=== PATIENT | male | born 1960 | race Caucasian/White ===

== ENCOUNTER → 2017-05-07 07:01 | Outpatient (CLI) | payer OTHER, SELFPAY ==
[2017-05-07 10:37] LABS: Glucose 104 mg/dL (74-106); Hemoglobin A1c 5.6 % (4.2-6.3); PSA,Total - Annual Screen 0.65 ng/mL (0.00-4.00)
== END ==
PROVIDERS: Family Provider Family Medicine; PCP Family Medicine; Visit Provider Family Medicine
DX: R73.01 Impaired fasting glucose (principal); Z12.5 Encounter for screening for malignant neoplasm of prostate
CPT/HCPCS: 36415; 82947; 83036; 84153; G0103

== ENCOUNTER → 2017-09-16 12:15 | Outpatient (CLI) | payer OTHER, SELFPAY ==
--- NOTE | 2017-09-16 12:17 | RAD_ITS ---
STUDY: X-RAY CHEST REASON FOR EXAM: Male, 56 years old. Left rib pain following injury. TECHNIQUE: PA and lateral views of the chest. COMPARISON: None. FINDINGS: Mild increased linear markings at the left lung base with blunted left costophrenic angle. This may represent a left basilar atelectasis. Normal size heart. Normal mediastinum and jessy. Normal visualized pulmonary arteries. Normal visualized aortic arch and descending thoracic aorta. Normal visualized thoracic spine. I suspect a nondisplaced fracture of the left seventh and eighth ribs. There is no demonstrated abnormality of the visualized soft tissue structures of the upper abdomen. RAD/Chest PA and Lateral IMPRESSION: Findings suggesting mild left basilar atelectasis and small left effusion. Findings suggestive of a nondisplaced fractures of the left seventh and eighth ribs. Electronically Signed: Darnell Weiss MD at 13:03 EDT Tel [phone], Service support ,
--- NOTE | 2017-09-16 12:47 | RAD_ITS ---
STUDY: X-RAY - UNILATERAL RIBS ( LEFT ) REASON FOR EXAM: Male, 56 years old. Left rib injury. TECHNIQUE: 4 view(s) of the ribs. COMPARISON: None. FINDINGS: Nondisplaced fractures of the left seventh and eighth ribs anterolaterally. Left basilar atelectasis and blunting of left costophrenic angle. RAD/Ribs Unil 2V No CXR IMPRESSION: Nondisplaced fractures involving the left seventh and eighth ribs anterolaterally with underlying left basilar atelectasis and blunting of the left costophrenic angle. Electronically Signed: Darnell Weiss MD at 13:04 EDT Tel [phone], Service support ,
== END ==
PROVIDERS: Family Provider Family Medicine; PCP Family Medicine; Visit Provider Family Medicine
DX: S20.212A Contusion of left front wall of thorax, initial encounter (principal)
CPT/HCPCS: 71046; 71100

== ENCOUNTER → 2018-02-12 06:13 | Outpatient (CLI) | payer SELFPAY ==
--- NOTE | 2018-02-12 06:35 | MRI_ITS ---
STUDY: MRI LUMBAR SPINE WITHOUT CONTRAST REASON FOR EXAM: Male, 57 years old. ischial bursitis, lbp, rt leg pain, injury 2002; current pain x 4-5 wks. TECHNIQUE: Standardized fat and water weighted pulse sequences were obtained in the sagittal and axial planes. COMPARISON: None FINDINGS: T12-L1: Normal endplates. Normal disc height, hydration and morphology. Normal bilateral facet joints. Normal central canal and bilateral lateral recesses. Normal bilateral intervertebral neural foramina. There is straightening of the normal lumbar lordosis. There is no substantial scoliosis. Normal conus medullaris that terminates at the L2 L1-2: Normal endplates. Normal disc height, hydration and morphology. Normal bilateral facet joints. Normal central canal and bilateral lateral recesses. Normal bilateral intervertebral neural foramina. L2-3: Normal endplates. Normal disc height, hydration and morphology. There is mild facet arthropathy. Normal central canal and bilateral lateral recesses. Normal bilateral intervertebral neural foramina. L3-4: Normal endplates. Normal disc height, hydration and morphology. There is mild facet arthropathy. Normal central canal and bilateral lateral recesses. Normal bilateral intervertebral neural foramina. L4-5: There is minimal disc space narrowing and endplate spondylosis. There is a mild disc bulge with left foraminal annular fissure without significant central canal or foraminal stenosis. There is mild facet arthropathy. L5-S1: There is mild disc space narrowing and endplates spondylosis. There is minimal disc bulge without significant central canal or foraminal stenosis. There is 1 cm hemangioma at L5. There is incompletely visualized right paracentral structure (axial image #1 series 6) with severe right lateral recess stenosis and posterior displacement of the traversing S1 nerve root Normal visualized sacral ala. Normal visualized paraspinous soft tissue structures. MRI/Spine Lumbar (Routine) IMPRESSION: L5/S1: Right lateral recess structure with severe stenosis. Leading differential consideration is extrusion/sequestration Electronically Signed: Reddy Mcfarland MD at 15:58 EST Tel , Service support ,
--- OUTSIDE RECORDS SUMMARY | 2018-04-09 06:27 | XMS RPT_ITS ---
:1960 Author Organization [facility] Care Team Providers Name Role Phone Fercho Mcdonald Attending Unavailable Fercho Mcdonald Referring Unavailable Fercho Mcdonald Primary Care Unavailable Fercho Mcdonald Attending Unavailable Fercho Mcdonald Primary Care Unavailable Fercho Mcdonald Attending Unavailable Fercho Mcdonald Referring Unavailable Fercho Mcdonald Primary Care Unavailable PROBLEMS PROBLEMS DATE TYPE CONDITION / CODE ATTENDING STATUS SOURCE 02/24/2018 Unknown M70.70 - Other Fercho Mcdonald Active [facility] bursitis of hip, Pending Sale To [facility] unspecified hip / Hospital M70.70(ICD-10) Repository 09/16/2017 Unknown S20.212A - Fercho Mcdonald Active [facility] Contusion of left [facility] front wall [facility] thorax, initial Repository encounter / S20.212A(ICD-10) PROCEDURES PROCEDURES No Procedure Records FoundRESULTS RESULTS SPINE LUMBAR Observed: 02/12/2018 Status: F Source: [place] (ROUTINE) 6:35 AM [facility] REPOSITORY [facility] Imaging Services [address] [place] [address] Spine Lumbar (Routine) MR#: [id number] Acct: [id number] Name: SANTOSH THOMSA Rep #: [id number] : 1960 M 57 From: Reddy Mcfarland PCP: Fercho Mcdonald MD Status: REG CLI Study: Spine Lumbar (Routine) Date of Exam: 02/12/18 Exam# [id number] Ordering Dr: Fercho Mcdonald MD STUDY: MRI LUMBAR SPINE WITHOUT CONTRAST REASON FOR EXAM: Male, 57 years old. ischial bursitis, lbp, rt leg pain, injury 2002; current pain x 4-5 wks. TECHNIQUE: Standardized fat and water weighted pulse sequences were obtained in the sagittal and axial planes. COMPARISON: None FINDINGS: T12-L1: Normal endplates. Normal disc height, hydration and morphology. Normal bilateral facet joints. Normal central canal and bilateral lateral recesses. Normal bilateral intervertebral neural foramina. There is straightening of the normal lumbar lordosis. There is no substantial scoliosis. Normal conus medullaris that terminates at the L2 L1-2: Normal endplates. Normal disc height, hydration and morphology. Normal bilateral facet joints. Normal central canal and bilateral lateral recesses. Normal bilateral intervertebral neural foramina. L2-3: Normal endplates. Normal disc height, hydration and morphology. There is mild facet arthropathy. Normal central canal and bilateral lateral recesses. Normal bilateral intervertebral neural foramina. L3-4: Normal endplates. Normal disc height, hydration and morphology. There is mild facet arthropathy. Normal central canal and bilateral lateral recesses. Normal bilateral intervertebral neural foramina. L4-5: There is minimal disc space narrowing and endplate spondylosis. There is a mild disc bulge with left foraminal annular fissure without significant central canal or foraminal stenosis. There is mild facet arthropathy. L5-S1: There is mild disc space narrowing and endplates spondylosis. There is minimal disc bulge without significant central canal or foraminal stenosis. There is 1 cm hemangioma at L5. There is incompletely visualized right paracentral structure (axial image #1 series 6) with severe right lateral recess stenosis and posterior displacement of the traversing S1 nerve root Normal visualized sacral ala. Normal visualized paraspinous soft tissue structures. MRI/Spine Lumbar (Routine) IMPRESSION: L5/S1: Right lateral recess structure with severe stenosis. Leading differential consideration is extrusion/sequestration Electronically Signed: Reddy Mcfarland MD at 15:58 EST Tel , Service support , CC: Fercho Mcdonald MD Vegetable Farmer: Signed RIBS UNIL 2V NO Observed: 09/16/2017 Status: F Source: [place] CXR 12:47 PM [facility] REPOSITORY [facility] Imaging Services [address] [place] [address] Ribs Unil 2V No CXR MR#: [id number] Acct: [id number] Name: SANTOSH THOMAS Rep #: [id number] : 1960 M 56 From: Dranell Weiss MD PCP: Fercho Mcdonald MD Status: REG CLI Study: Ribs Unil 2V No CXR Date of Exam: 09/16/17 Exam# [id number] Ordering Dr: Fercho Mcdonald MD STUDY: X-RAY - UNILATERAL RIBS ( LEFT ) REASON FOR EXAM: Male, 56 years old. Left rib injury. TECHNIQUE: 4 view(s) of the ribs. COMPARISON: None. FINDINGS: Nondisplaced fractures of the left seventh and eighth ribs anterolaterally. Left basilar atelectasis and blunting of left costophrenic angle. RAD/Ribs Unil 2V No CXR IMPRESSION: Nondisplaced fractures involving the left seventh and eighth ribs anterolaterally with underlying left basilar atelectasis and blunting of the left costophrenic angle. Electronically Signed: Darnell Weiss MD at 13:04 EDT Tel [phone], Service support , CC: Fercho Mcdonald MD Vegetable Farmer: Signed CHEST PA AND LATERAL Observed: 09/16/2017 Status: F Source: [place] 12:18 PM [facility] REPOSITORY [facility] Imaging Services [address] [place] [address] Chest PA and Lateral MR#: [id number] Acct: [id number] Name: SANTOSH THOMAS Rep #: [id number] : 1960 M 56 From: Darnell Weiss MD PCP: Fercho Mcdonald MD Status: REG CLI Study: Chest PA and Lateral Date of Exam: 09/16/17 Exam# [id number] Ordering Dr: Fercho Mcdonald MD STUDY: X-RAY CHEST REASON FOR EXAM: Male, 56 years old. Left rib pain following injury. TECHNIQUE: PA and lateral views of the chest. COMPARISON: None. FINDINGS: Mild increased linear markings at the left lung base with blunted left costophrenic angle. This may represent a left basilar atelectasis. Normal size heart. Normal mediastinum and jessy. Normal visualized pulmonary arteries. Normal visualized aortic arch and descending thoracic aorta. Normal visualized thoracic spine. I suspect a nondisplaced fracture of the left seventh and eighth ribs. There is no demonstrated abnormality of the visualized soft tissue structures of the upper abdomen. RAD/Chest PA and Lateral IMPRESSION: Findings suggesting mild left basilar atelectasis and small left effusion. Findings suggestive of a nondisplaced fractures of the left seventh and eighth ribs. Electronically Signed: Darnell Weiss MD at 13:03 EDT Tel [phone], Service support , CC: Fercho Mcdonald MD Vegetable Farmer: Signed GLUCOSE Collected: 05/07/2017 Status: F Source: [place] 7:11 AM [facility] REPOSITORY Order Comment: Order Date: 02/07/17 Order Info: 2345-7 - GLU Order Info: 2857-1 - PSA TYPE CODE TESTS RESULT OUT OF RANGE REFERENCE UNITS LAB L501.0100 74-106 mg/dL Normal GLU 104 Result Comment: Fasting Glucose result from 100 to 125 mg/dL suggests IMPAIRED HOMEOSTASIS per A.D.A. criteria. Please note revised GLUCOSE reference range effective 2017. Performed By: #### L501.0100, L501.9910, L501.9985 #### [facility] [address] [place], [address] PSA,TOTAL - ANNUAL Collected: 05/07/2017 Status: F Source: [place] SCREEN 7:11 AM [facility] REPOSITORY Order Comment: Order Date: 02/07/17 Order Info: [id number] - GLU Order Info: 2857-1 - PSA TYPE CODE TESTS RESULT OUT OF RANGE REFERENCE UNITS LAB L501.9910 0.00-4.00 ng/mL Normal PSA,TOT 0.65 SCREEN Result Comment: This test was performed using the TPSA assay method for the [employer] chemistry system. Values obtained with different assay methods cannot be used interchangably. When changing PSA assays in the course of monitoring a patient, additional sequential testing should be carried out to confirm baseline values. Performed By: #### L501.0100, L501.9910, L501.9985 #### [facility] [address] [place], [address] HEMOGLOBIN A1C Collected: 05/07/2017 Status: F Source: [place] 7:11 AM [facility] REPOSITORY Order Comment: Order Date: 02/07/17 Order Info: [id number] - A1C TYPE CODE TESTS RESULT OUT OF RANGE REFERENCE UNITS LAB L501.9985 4.2-6.3 % Normal HGB A1C 5.6 Performed By: #### L501.0100, L501.9910, L501.9985 #### [facility] [address] [place], [address] ALLERGIES ALLERGIES No Allergies Records FoundENCOUNTERS ENCOUNTERS ADMIT/DISCHARGE ACCOUNT ADMITTING ENCOUNTER LOCATION SOURCE NUMBER CLASS 02/12/2018 [id number] Ambulatory [facility] 7 [facility] ing:MRI Repository 09/16/2017 [id number] Ambulatory [facility] 0 [facility] ing:MTRAD Repository 05/07/2017 [id number] Ambulatory [facility] [place] 0 [facility] ing:MTLAB Repository PAYERS PAYERS ENCOUNTER GUARANTOR PAYER SUBSCRIBER SOURCE 02/12/2018 SANTOSH Mora Primary Insurance:[facility] [employer] [id number] PACKAGE PLANPolicy CHERRYDOB: [facility] Number: .[id number] Date:2018-02-10 Repository 69444Ood: () 02/12/2018 Secondary NOT GIVENUNK [place] Insurance:SELF PAY [facility] Number: Effective Repository Date:2018-02-10 09/16/2017 SANTOSH Mora Primary SANTOSH Mora [place] [id number] Insurance:AULTCAREPol CHERRYDOB: [facility] Number: [id number], [place] [id number] Repository 97[address]Vxc: [phone] Date:[id number] [phone] () [address] [place] [id number]: 09/16/2017 Secondary NOT GIVENUNK [place] Insurance:SELF PAY [facility] Number: Effective Repository Date:2017-09-16 05/07/2017 SANTOSH Primary SANTOSH White [id number] Insurance:AULTCAREPol CHERRYDOB: [facility] Number: [id number], [place] [id number] Repository 455[address]Afx: [phone] Date:[id number] [phone] () [address], [place] [address]CK: 05/07/2017 Secondary NOT GIVENUNK [place] Insurance:SELF PAY [facility] Number: Effective Repository Date:2017-05-07
== END ==
PROVIDERS: Family Provider Family Medicine; PCP Family Medicine; Referring Provider Family Medicine; Visit Provider Family Medicine
DX: M70.70 Other bursitis of hip, unspecified hip (principal)
CPT/HCPCS: 72148

== ENCOUNTER → 2018-06-09 13:31 | Outpatient (CLI) | payer OTHER, SELFPAY ==
[2018-06-09 13:22] VITALS: BMI 34.7
--- NOTE | 2018-06-09 13:32 | RAD_ITS ---
STUDY: X-RAY - LUMBAR SPINE REASON FOR EXAM: Male, 57 years old. Back pain TECHNIQUE: 4 view(s) of the lumbar spine were obtained. AP lateral, flexion and extension lateral COMPARISON: February 12, 2018 x-ray lumbar spine FINDINGS: Normal lumbar lordosis. There is no substantial scoliosis. There is a normal alignment of the vertebrae. No laxity in alignment with flexion or extension. Vertebral body height is maintained. Small marginal osteophytes are present. Normal disc space heights. There is atherosclerotic calcification of the abdominal aorta. There appears aortic ectasia distally, not well evaluated due to the intermittent calcifications seen. RAD/L/S Spine Min 4 Views IMPRESSION: No evidence of instability with flexion or extension. See above. Electronically Signed: Mary Hwang MD at 9:55 EDT , Service support ,
== END ==
PROVIDERS: Family Provider Family Medicine; PCP Family Medicine; Referring Provider Orthopaedic Surgery; Visit Provider Orthopaedic Surgery
DX: M54.5 Low back pain (principal)
CPT/HCPCS: 72110

== ENCOUNTER → 2018-10-22 07:00 | Outpatient (CLI) | payer OTHER, SELFPAY ==
[2018-06-09 13:22] VITALS: BMI 34.7
[2018-10-22 10:03] LABS: Absolute Lymphocyte Count 2.33 X10^3/uL (0.83-4.51); Absolute Neutrophil Count 2.8 X10^3/uL (2.0-7.7); Basophil# 0.04 X10^3/uL; Basophil% 0.7 % (0-1); Eosinophil# 0.28 X10^3/uL; Eosinophils% 4.7 % (0-5); Hematocrit 41.6 % (40-54); Hemoglobin 14.6 g/dL (13.0-16.5); Lymphocyte # 2.33 X10^3/ul (4.0); Mean Corp Hgb Conc 35.1 g/dL (32-36); Mean Corpuscular Hgb 31.8 pg (27.0-32.0); Mean Corpuscular Volume 90.6 fL (80-94); Mean Platelet Vol. 10.7 fl (6.2-12.0); Monocyte# 0.56 X10^3/uL; Monocyte% 9.4 % (0-10); NRBC Flagged by Analyzer 0 % (0-5); Neutrophil # 2.76 X10^3/uL (2.7-7.7); Platelet Count 198 K/mm3 (150-450); RBC Distribution Width CV 11.8 % (11.6-14.6); RBC Distribution Width SD 38.9 fl (35.1-43.9); Red Blood Count 4.59 M/mm3 (4.6-6.2)
[2018-10-22 10:19] LABS: Hemoglobin A1c 5.5 % (4.2-6.3)
[2018-10-22 10:26] LABS: ALB/GLOB Ratio 1.1 RATIO (0.9-2.4); AST(SGOT) 19 U/L (15-37); Alanine Aminotransfer ALT/SGPT 28 U/L (16-61); Albumin, Serum 3.6 g/dL (3.2-5.0); Alkaline Phosphatase 34 U/L (45-117); Anion Gap 6 (5-15); BUN 21 mg/dL (7-18); BUN/Creat Ratio 18.3 RATIO (10-20); Calcium,Total 8.4 mg/dL (8.5-10.1); Chloride 106 mmol/L (98-107); Cholesterol 205 mg/dL (200); Creatinine, Serum 1.15 mg/dL (0.70-1.30); EST Glomerular Filtration Rate 69 mL/min (>60); Est Glom Filt Rate - Afr Amer 84 mL/min (>60); Globulin 3.4 g/dL (2.2-4.2); Glucose 100 mg/dL (74-106); High Density Lipoprotein 36 mg/dL; PSA,Total - Annual Screen 0.61 ng/mL (0.00-4.00); Sodium Level 140 mmol/L (136-145); Triglycerides 210 mg/dL; Very Low Density Lipoprotein 42 mg/dL (5-40)
== END ==
PROVIDERS: Family Provider Family Medicine; PCP Family Medicine; Referring Provider Family Medicine; Visit Provider Family Medicine
DX: R73.01 Impaired fasting glucose (principal); E78.00 Pure hypercholesterolemia, unspecified; Z12.5 Encounter for screening for malignant neoplasm of prostate
CPT/HCPCS: 36415; 80053; 80061; 83036; 84153; 85025; G0103

== ENCOUNTER → 2019-02-23 09:07 | Outpatient (CLI) | payer OTHER, SELFPAY ==
[2018-06-09 13:22] VITALS: BMI 34.7
[2019-02-23 10:26] LABS: Amphetamine Urine VISTA NEGATIVE (<1000 ng/mL); Barbiturate Urine VISTA NEGATIVE (< 200 ng/mL); Benzodiazepine Urine VISTA NEGATIVE (< 200 ng/mL); Cocaine Urine VISTA NEGATIVE (< 300 ng/mL); Ecstacy Urine VISTA NEGATIVE (< 500 ng/mL); Methadone Urine VISTA NEGATIVE (< 300 ng/mL); PCP Urine VISTA NEGATIVE (< 25 ng/mL); THC Urine VISTA NEGATIVE (< 50 ng/mL); Vista UDS pH Range 5
== END ==
PROVIDERS: Family Provider Family Medicine; PCP Family Medicine; Visit Provider Family Medicine
DX: M54.5 Low back pain (principal); G89.29 Other chronic pain; E78.00 Pure hypercholesterolemia, unspecified
CPT/HCPCS: 80307

== ENCOUNTER → 2019-03-26 07:03 | Outpatient (CLI) | payer BC, SELFPAY ==
[2018-06-09 13:22] VITALS: BMI 34.7
[2019-03-26 10:36] LABS: Cholesterol 153 mg/dL (200); High Density Lipoprotein 38 mg/dL; Triglycerides 119 mg/dL; Very Low Density Lipoprotein 24 mg/dL (5-40)
== END ==
PROVIDERS: Family Provider Family Medicine; PCP Family Medicine; Referring Provider Family Medicine; Visit Provider Family Medicine
DX: E78.00 Pure hypercholesterolemia, unspecified (principal); M54.5 Low back pain
CPT/HCPCS: 36415; 80061

== ENCOUNTER → 2019-10-08 08:53 | Outpatient (CLI) | payer BC, SELFPAY ==
[2018-06-09 13:22] VITALS: BMI 34.7
[2019-10-08 10:53] LABS: ALB/GLOB Ratio 1.1 RATIO (0.9-2.4); AST(SGOT) 21 U/L (15-37); Alanine Aminotransfer ALT/SGPT 33 U/L (16-61); Albumin, Serum 3.6 g/dL (3.2-5.0); Alkaline Phosphatase 30 U/L (45-117); Anion Gap 5 (5-15); BUN 18 mg/dL (7-18); BUN/Creat Ratio 18.4 RATIO (10-20); Calcium,Total 8.4 mg/dL (8.5-10.1); Chloride 107 mmol/L (98-107); Cholesterol 179 mg/dL (200); Creatinine, Serum 0.98 mg/dL (0.70-1.30); EST Glomerular Filtration Rate 83 mL/min (>60); Est Glom Filt Rate - Afr Amer 101 mL/min (>60); Globulin 3.2 g/dL (2.2-4.2); Glucose 108 mg/dL (74-106); High Density Lipoprotein 33 mg/dL; Potassium 3.9 mmol/L (3.5-5.1); Protein, Total 6.8 g/dL (6.4-8.2); Sodium Level 140 mmol/L (136-145); Triglycerides 167 mg/dL; Very Low Density Lipoprotein 33 mg/dL (5-40)
== END ==
PROVIDERS: PCP Family Medicine; Referring Provider Family Medicine; Visit Provider Family Medicine
DX: E78.00 Pure hypercholesterolemia, unspecified (principal)
CPT/HCPCS: 36415; 80053; 80061

== ENCOUNTER 2020-06-07 12:12 | Emergency (ER) | payer BC, SELFPAY ==
[2018-06-09 13:22] VITALS: BMI 34.7
[2020-06-07 12:15] VITALS: BP 191/158; PULSE 78; RESP 16; TEMP 37.1; O2SAT 98; BMI 36.4
--- NOTE | 2020-06-07 12:18 | ED.DCSUM_ITS ---
History of Present Illness Chief Complaint: Laceration Informant: Patient Occurred: Today Narrative: Patient is a 59-year-old [id number] male presenting with injury to his right elbow. 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 A tree was falling and he was too close to it. Patient put off his right arm to shoulder himself from the tree and sustained a laceration to his right elbow. He states the whole flap of skin over his elbow came off and he pushed it back and had his father called 911. He denies any associated numbness or tingling. He denies any pain with range of motion of the arm. He is not on any blood thinners. No other injuries per reported. Patient received 100 mcg of fentanyl in route. Patient is on [employer] [place] and ibuprofen chronically for back pain. Tetanus Immunization: Unknown Past Medical History - Allergies and Home Meds Allergies/Adverse Reactions: Allergies No Known Allergies Allergy (Unverified 06/09/18 13:23) Primary Care Physician: Fercho Diego MD [Primary Care Provider] - Past Medical History: - - Hyperlipidemia, chronic back pain Surgical History: noncontributory Lives: Spouse/ Significant Other Smoking Status: Current some day smoker Review of Systems General: Denies: Chills, Fever, Sweats Eyes: Denies: Visual changes - bilaterally, Diplopia ENT: Denies: Rhinorrhea, Sore throat Cardiovascular: Denies: Chest pain, Palpitations Respiratory: Denies: Dyspnea, Cough, Dyspnea on exertion Gastrointestinal: Denies: Abdominal pain, Nausea, Vomiting, Diarrhea, Melena, Hematochezia Genitourinary: Denies: Dysuria, Hematuria, Frequency Musculoskeletal: Reports: Extremity Pain - Right elbow. Denies: Back pain Skin: Reports: Wounds - Right elbow. Denies: Rash Neurological: Denies: Headache, Weakness, Numbness Physical Exam Inital Vital Signs reviewed: Yes Right Elbow: - - 14 cm laceration dorsal aspect of elbow. Negative for: Deformity, Hematoma, Limited ROM Right Forearm: Negative for: Contusion, Deformity, Edema, Limited ROM Left Wrist: Negative for: Contusion, Deformity, Edema, Limited ROM General: Well nourished, Well developed Head: Normocephalic, Atraumatic Eyes: Perrl, EOMI ENT: No Trauma, Moist Mucous Membranes Neck: Nontender, Full ROM Cardiovascular: Regular rate, Regular rhythm, No murmurs Respiratory: No distress, CTA bilaterally, Chest nontender Abdomen: Soft, Nontender, Nondistended, Normal bowel sounds Back: Nontender Skin: Normal color, No rash, Trauma - 14 cm full-thickness V-shaped laceration over dorsal aspect of the right elbow Neurological: Alert, Oriented x3, Cranial nerves II-XII grossly intact, Normal Strength, Normal Sensation Psychological: Normal affect Diagnostic/Tx/Re-eval Right x-ray?3 views, interpreted by emergency medicine physician show soft tissue defect with subcutaneous air. There does not appear to be any involvement of the joints or air in the joint. No acute fracture is noted. - Medical Decision Making Patient evaluated for laceration/injury of his right elbow. Patient received fentanyl in route. He does not require any further pain medication in the ER. He is neuro vascularly intact. Range of motion intact in all planes. He has good distal pulses and brisk capillary refill. See procedure note for laceration repair. Laceration is undermined the flap of 5 to 6 cm and does go deeper but does not penetrate the fascia. Because of the depth, patient is given 3 g of Unasyn. Is irrigated out copiously. Two splinters, each approximately 1 cm in length are removed from the wound. Patient is placed on a course of Augmentin. He is given Ortho for follow-up as well as instructions follow-up with his primary care doctor. Tetanus is updated in the ER. Patient is in pain management and is therefore not given a prescription for any further pain medication. He already takes [employer] and Motrin which he will continue. Patient is neurovascularly intact and has good range of motion after repair. Patient is counseled on signs and symptoms requiring return to the emergency room putting signs of infection. Patient verbalizes agreement and understand this plan. Patient discharged home in stable and improved condition. Procedures - Lacerations No standard instances Length: 5.51 in Depth: Sub Q Shape: Flap Prep: Sterile Conditions, Chlorhexadine Laceration Repair: Lidocaine with epi Irrigated (ml): 999 - sterile saline Comment: Complex laceration. Laceration underneath the flap extended approximately 6 cm down to the fascia. It did not go through the fascia. 5 deep sutures placed using 4-0 Vicryl absorbable. 10 vertical mattress sutures are placed and one simple interrupted sutures placed in 4-0 Ethilon. 3 steri strips are placed at the apex of the V as some that skin is already devitalized and I do not think will keep sutures in place. ED Disposition - Plan for ED Patient: Disposition: Home or Assisted Living Diagnosis: Laceration of right elbow with foreign body Instructions: ED Laceration: All Closures Prescriptions: Amox/Clavulanate Tablet [Augmentin Tablet] 875 mg PO Q12H #20 tab Transmission Status: Pending to [facility] Referrals: Fercho Diego MD [Primary Care Provider] - Crow Mcdonald MD [STAFF PHYSICIAN] - Additional Instructions: Your doctor for wound check early next week. Return the emergency room with signs of infection or worsening pain. If you have concerns about healing or start having difficulty with movement of your elbow please follow-up with orthopedics, you been referred to Dr. Mcdonald today. Keep the wound clean and covered. Do not submerge in water for the first 24 to 48 hours. Sutures should be removed in approximately 10 days. Your primary care doctor can do that or you may return to the emergency room.
[2020-06-07 12:19] VITALS: BP 191/158; PULSE 78; RESP 16; O2SAT 97
--- NOTE | 2020-06-07 12:22 | RAD_ITS ---
STUDY: X-RAY - RIGHT ELBOW REASON FOR EXAM: Male, 59 years old. Trama . Large laceration along the posterior aspect of the arm. TECHNIQUE: 3 view(s) of the elbow. COMPARISON: None. FINDINGS: Normal visualized humerus, radius and ulna. Normal radiocapitellar and ulnotrochlear articulations. Soft tissue laceration with air in the soft tissues along the posterior aspect of the distal humerus. RAD/Elbow min 3 Views IMPRESSION: Large soft tissue laceration overlying the posterior aspect of the humerus. Small amount of air is seen within the laceration. No radiopaque foreign body is seen. Electronically Signed: Darnell Weiss MD at 12:51 EDT , Service support ,
[2020-06-07] MEDS: Diphth,Pertuss(Acell),Tet Vac 0.5 ML Vial IM (12:56)
[2020-06-07] MEDS: Lidocaine 1% /Epi 1:100 (20ml) 20 ML Vial INFILT (12:56)
[2020-06-07] MEDS: morphine 8 MG/ML Syringe IV (15:32)
[2020-06-07 15:38] VITALS: BP 140/74
== END 2020-06-07 16:00 | disposition home or self-care (01) ==
PROVIDERS: Emergency Provider Emergency Medicine; PCP Family Medicine
DX: S51.021A Laceration with foreign body of right elbow, initial encounter (principal); W26.8XXA Contact with other sharp object(s), not elsewhere classified, initial encounter; Y93.89 Activity, other specified; Y92.89 Other specified places as the place of occurrence of the external cause; Y99.0 Civilian activity done for income or pay; M54.9 Dorsalgia, unspecified; G89.29 Other chronic pain; E78.5 Hyperlipidemia, unspecified; F17.200 Nicotine dependence, unspecified, uncomplicated; Z23 Encounter for immunization
CPT/HCPCS: 12002; 73080; 90471; 90715; 96365; 96375; 99285; A4216; J0295

== ENCOUNTER → 2020-08-22 07:01 | Outpatient (CLI) | payer BC, SELFPAY ==
[2020-08-22 10:18] LABS: ALB/GLOB Ratio 1.1 RATIO (0.9-2.4); AST(SGOT) 17 U/L (15-37); Alanine Aminotransfer ALT/SGPT 30 U/L (16-61); Albumin, Serum 3.8 g/dL (3.2-5.0); Alkaline Phosphatase 36 U/L (45-117); Anion Gap 6 (5-15); BUN 23 mg/dL (7-18); BUN/Creat Ratio 20.5 RATIO (10-20); Calcium,Total 9.3 mg/dL (8.5-10.1); Chloride 107 mmol/L (98-107); Cholesterol 208 mg/dL (200); Creatinine, Serum 1.12 mg/dL (0.70-1.30); EST Glomerular Filtration Rate 71 mL/min (>60); Est Glom Filt Rate - Afr Amer 86 mL/min (>60); Globulin 3.4 g/dL (2.2-4.2); Glucose 135 mg/dL (74-106); High Density Lipoprotein 35 mg/dL; Potassium 4.2 mmol/L (3.5-5.1); Protein, Total 7.2 g/dL (6.4-8.2); Sodium Level 139 mmol/L (136-145); Triglycerides 207 mg/dL; Very Low Density Lipoprotein 41 mg/dL (5-40)
== END ==
PROVIDERS: PCP Family Medicine; Referring Provider Family Medicine; Visit Provider Family Medicine
DX: E78.00 Pure hypercholesterolemia, unspecified (principal)
CPT/HCPCS: 36415; 80053; 80061

== ENCOUNTER → 2020-10-24 12:05 | Outpatient (CLI) | payer BC, SELFPAY ==
--- NOTE | 2020-10-24 12:08 | RAD_ITS ---
STUDY: X-RAY - UNILATERAL RIBS ( LEFT ) WITH CHEST REASON FOR EXAM: Male, 59 years old. Soft tissue injury of the left chest. TECHNIQUE - RIBS: 4 view(s) of the ribs. TECHNIQUE - CHEST: Single frontal view of the chest. COMPARISON: Chest x-ray dated 09/16/2017. FINDINGS - RIBS: Healed fractures of the left seventh and eighth ribs. FINDINGS - CHEST: The lungs are clear and expanded. Stable scattered healed granulomatous calcifications. There is no demonstrated pleural abnormality. Normal size heart. Normal mediastinum and jessy. Normal visualized pulmonary arteries. Normal visualized aortic arch and descending thoracic aorta. Normal visualized thoracic spine. Normal visualized ribs, clavicles, and shoulders. There is no demonstrated abnormality of the visualized soft tissue structures of the upper abdomen. RAD/Ribs Uni Min 3V w/PA Chest IMPRESSION: RIBS: Healed fractures of the left seventh and eighth ribs. No acute displaced rib fracture identified. CHEST: Stable chest with no acute finding. Electronically Signed: Giorgio Longo MD at 9:48 EDT , Service support ,
== END ==
PROVIDERS: PCP Family Medicine; Referring Provider Family Medicine; Visit Provider Family Medicine
DX: S29.9XXA Unspecified injury of thorax, initial encounter (principal)
CPT/HCPCS: 71101

== ENCOUNTER → 2020-11-24 07:02 | Outpatient (CLI) | payer BC, SELFPAY ==
[2020-11-24 10:21] LABS: Absolute Lymphocyte Count 2.29 X10^3/uL (0.83-4.51); Absolute Neutrophil Count 2.4 X10^3/uL (2.0-7.7); Basophil# 0.04 X10^3/uL; Basophil% 0.7 % (0-1); Eosinophil# 0.33 X10^3/uL; Eosinophils% 5.8 % (0-5); Hematocrit 43.4 % (40-54); Hemoglobin 14.8 g/dL (13.0-16.5); Lymphocyte # 2.29 X10^3/ul (0.83-4.51); Lymphocyte % 40.5 % (19-41); Mean Corp Hgb Conc 34.1 g/dL (32-36); Mean Corpuscular Hgb 31.6 pg (27.0-32.0); Mean Corpuscular Volume 92.5 fL (80-94); Mean Platelet Vol. 11.6 fl (6.2-12.0); Monocyte% 10.6 % (0-10); NRBC Flagged by Analyzer 0 % (0-5); Neutrophil # 2.39 X10^3/uL (2.7-7.7); Neutrophil % 42.2 % (47-70); Platelet Count 216 K/mm3 (150-450); RBC Distribution Width SD 41.1 fl (35.1-43.9); Red Blood Count 4.69 M/mm3 (4.6-6.2); White Blood Count 5.7 K/mm3 (4.4-11.0)
[2020-11-24 10:31] LABS: Vitamin B12 405 pg/mL (211-911)
[2020-11-24 10:57] LABS: ALB/GLOB Ratio 1.1 RATIO (0.9-2.4); AST(SGOT) 21 U/L (15-37); Alanine Aminotransfer ALT/SGPT 39 U/L (16-61); Albumin, Serum 3.8 g/dL (3.2-5.0); Alkaline Phosphatase 34 U/L (45-117); Anion Gap 10 (5-15); BUN 27 mg/dL (7-18); BUN/Creat Ratio 23.9 RATIO (10-20); Calcium,Total 9.1 mg/dL (8.5-10.1); Chloride 104 mmol/L (98-107); Cholesterol 183 mg/dL (200); Creatinine, Serum 1.13 mg/dL (0.70-1.30); EST Glomerular Filtration Rate 70 mL/min (>60); Est Glom Filt Rate - Afr Amer 85 mL/min (>60); Globulin 3.6 g/dL (2.2-4.2); Glucose 117 mg/dL (74-106); High Density Lipoprotein 39 mg/dL; Potassium 4.2 mmol/L (3.5-5.1); Protein, Total 7.4 g/dL (6.4-8.2); Sodium Level 139 mmol/L (136-145); Thyroid Stim Hormone (TSH) 1.93 uIU/mL (0.358-3.74); Triglycerides 137 mg/dL; Very Low Density Lipoprotein 27 mg/dL (5-40)
[2020-11-24 11:56] LABS: Hemoglobin A1c 5.9 % (3.8-5.6)
== END ==
PROVIDERS: PCP Family Medicine; Referring Provider Family Medicine; Visit Provider Family Medicine
DX: R53.83 Other fatigue (principal); R73.01 Impaired fasting glucose; E78.00 Pure hypercholesterolemia, unspecified
CPT/HCPCS: 36415; 80053; 80061; 82607; 83036; 84443; 85025

== ENCOUNTER 2021-06-13 14:17 | Outpatient (CLI) | payer OTHER, SELFPAY ==
--- NOTE | 2021-06-13 14:20 | RAD_ITS ---
STUDY: XR Shoulder Min 2 Views REASON FOR EXAM: Male, 60 years old. PAIN TECHNIQUE: XR Shoulder Min 2 Views LEFT COMPARISON: None. FINDINGS: Normal glenohumeral articulation. Normal acromioclavicular joint. Normal acromion. Normal humeral head and visualized proximal humerus. The soft tissue structures are unremarkable. Normal visualized pulmonary apex. RAD/Shoulder min 2 Views IMPRESSION: There are no acute findings of the shoulder. Electronically Signed: Jaspreet Muhammad MD at 17:17 EDT ,
== END 2021-06-13 23:59 | disposition home or self-care (01) ==
PROVIDERS: PCP Family Medicine; Referring Provider Family Medicine; Visit Provider Family Medicine
DX: M25.512 Pain in left shoulder (principal)
CPT/HCPCS: 73030

== ENCOUNTER 2021-06-14 07:01 | Outpatient (CLI) | payer OTHER, SELFPAY ==
[2021-06-14 10:21] LABS: Anion Gap 3 (5-15); BUN 18 mg/dL (7-18); BUN/Creat Ratio 17.8 RATIO (10-20); Calcium,Total 8.8 mg/dL (8.5-10.1); Chloride 106 mmol/L (98-107); Cholesterol 171 mg/dL (200); Creatinine, Serum 1.01 mg/dL (0.70-1.30); EST Glomerular Filtration Rate 80 mL/min (>60); Est Glom Filt Rate - Afr Amer 97 mL/min (>60); Glucose 117 mg/dL (74-106); High Density Lipoprotein 36 mg/dL; Potassium 4.3 mmol/L (3.5-5.1); Sodium Level 138 mmol/L (136-145); Triglycerides 149 mg/dL; Very Low Density Lipoprotein 30 mg/dL (5-40)
[2021-06-14 10:28] LABS: Hemoglobin A1c 5.9 % (3.8-5.6)
[2021-06-14 10:38] LABS: Amphetamine Urine VISTA NEGATIVE (<1000 ng/mL); Barbiturate Urine VISTA NEGATIVE (< 200 ng/mL); Benzodiazepine Urine VISTA NEGATIVE (< 200 ng/mL); Cocaine Urine VISTA NEGATIVE (< 300 ng/mL); Ecstacy Urine VISTA NEGATIVE (< 500 ng/mL); Methadone Urine VISTA NEGATIVE (< 300 ng/mL); PCP Urine VISTA NEGATIVE (< 25 ng/mL); THC Urine VISTA NEGATIVE (< 50 ng/mL); Vista UDS pH Range 5
== END 2021-06-14 23:59 | disposition home or self-care (01) ==
PROVIDERS: PCP Family Medicine; Referring Provider Family Medicine; Visit Provider Family Medicine
DX: E78.00 Pure hypercholesterolemia, unspecified (principal); M54.17 Radiculopathy, lumbosacral region; R73.01 Impaired fasting glucose
CPT/HCPCS: 36415; 80048; 80061; 80307; 83036

== ENCOUNTER 2021-06-22 14:16 | Outpatient (RCR) | payer OTHER, SELFPAY ==
--- NOTE | 2021-06-22 16:30 | HP.PTEVAL_ITS ---
Patient's Visit Information SANTOSH THOMAS is a 60 year old M referred to Physical Therapy by Dr. Emile Soto MD with a diagnosis of LEFT SHOULDER PAIN. Date of Evaluation: 06/22/21 Physical Therapist: Bishnu Mejia, PT, Cert MDT, OCS - Visit Plan Frequency: 1-2x /Week Duration: 4 Weeks Plan: PT INTERVETIONS POSTURAL EX'S, MANUAL THERAPY G-H,FLEXABILITY SHOULDER , RTC/SCAPULAR, - Subjective This 60 y/o male presents to physical therapy with left shoulder pain. Patient has left shoulder pain for ~ 2weeks. Patient seen DR had x-ray- showed -. Patient located anterior shoulder . Aggravating lift OH ,behind back , activities above 90 degrees. Pain can affects sleeping. Alleviating factors rest . Denies paresthesia/tingling. Patient pain affects QOL and function and job demands . Patient had problems with retina surgery x2 required 8 each weeks. Also had severe laceration of right arm. Patient pain affects QOL and job demands. Patient intermittent sharp pain ~ 20 sec. SOCIAL: . 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 PALPATION: tender AC. NEURO: denies paresthesia/tingling. AROM SHOULDER: shoulder flexion 130 degrees ,135 abduction ,ER 85 degrees ,IR 50 degrees. MMT: RTC 4/5 except supraspinatous 4- /5, deltoid 4-/5,middle traps 3/5 Lower traps 3-/5. CAPSULAR RESTRICTION: mild/mod tight. SCAPULAR-HUMERAL RYTHUM: < 1:1 - Special Tests L Shoulder External Rotation Lag Test - RC Tear: Negative L Shoulder Drop Sign - IS Test: Negative L Shoulder Empty Can - SS: Negative L Shoulder Belly Press - SupScap: Negative L Shoulder Neer - Impingement: Positive L Shoulder Bull Hiro - Impingement: Positive L Shoulder Biceps Load Test - Labrum: Negative L Shoulder Shrug Sign - OA/Adhesive Capsulitis: Negative - Balance/Special Test Scores Quick DASH Score: 47.7250 - Goals Goal 1:: Patient to be I with HEP Goal Time Frame: 4-6 Weeks Goal 2:: Patient to improve AROM ER/flexion/abduction 10 degrees > to improve function with activities above 90 degrees job and ADLS Goal Time Frame: 4-6 Weeks Goal 3:: Patient to improve strength supraspinatus 4/5 and scapular function to improve OH activities Goal Time Frame: 4-6 Weeks Goal 4:: Patient to improve 50% improvement with function with OH and less pain Goal Time Frame: 4-6 Weeks Goal 5:: Patient to improve QUICK DASH by 5 points to improve function with ADLS' Goal Time Frame: 4-6 Weeks - Rehabilitation Potential Physical Therapy Diagnosis: This 60 female presents to physical therapy with left shoulder pain with pain with ER ,decrease ROM weakness supraspinatus ,mobility reaching behind back thus will benefit from skilled PT Rehabilitation Potential: Good - Anticipated Interventions Patient/Client Instruction: Educate patient on: Condition, Plan of Care For the Purpose of:: To decrease pain, To increase ROM, To improve muscle performance and motor function, To increase tolerance to activity/condition/position, To improve ability of physical actions for home/community/work/leisure, To improve health of tissue, To decrease soft tissue restriction, To increase flexibility/ROM, To prevent re-injury Therapeutic Exercise to Include: Strength training, Endurance training, Balance training, Postural training, Flexibilty training, Passive ROM, Active ROM Comment: RTC For the Purpose of:: To decrease pain, To increase ROM, To improve muscle performance and motor function, To improve ability to perform ADL's, To increase tolerance to activity/condition/position, To improve ability of physical actions for home/community/work/leisure, To improve gait and locomotor functions, To improve health of tissue, To increase flexibility/ROM TENS: Yes IF ES: Yes Cryotherapy (ice pack, ice massage): Yes Ultrasound (thermal/non thermal): Yes For the Purpose of:: To decrease pain, To increase ROM, To improve nutrient delivery to tissue, To increase oxygenation perfusion Thank you for the opportunity to evaluate your patient. For Medicare and Medicare HMO plans, please review the plan of care and approve it. It will need to be FAXED BACK to us at [phone] for Medicare purposes. For Medicare only, by signing this I certify the plan of care. Please let me know if there are questions or concerns regarding this plan of care. Physician Signature: Date:
--- NOTE | 2021-12-19 09:09 | HP.PT.NRP ---
SANTOSH THOMAS was seen in my office for initial evaluation on 06/22/21. The following Plan of Care was established for this patient: Initial Frequency: 1-2x /Week Initial Duration: 4 Weeks Patient/Client Instruction: Educate patient on: Condition, Plan of Care For the Purpose of:: To decrease pain, To increase ROM, To improve muscle performance and motor function, To increase tolerance to activity/condition/position, To improve ability of physical actions for home/community/work/leisure, To improve health of tissue, To decrease soft tissue restriction, To increase flexibility/ROM, To prevent re-injury Therapeutic Exercise to Include: Strength training, Endurance training, Balance training, Postural training, Flexibilty training, Passive ROM, Active ROM For the Purpose of:: To decrease pain, To increase ROM, To improve muscle performance and motor function, To improve ability to perform ADL's, To increase tolerance to activity/condition/position, To improve ability of physical actions for home/community/work/leisure, To improve gait and locomotor functions, To improve health of tissue, To increase flexibility/ROM TENS: Yes IF ES: Yes Cryotherapy (ice pack, ice massage): Yes Ultrasound (thermal/non thermal): Yes For the Purpose of:: To decrease pain, To increase ROM, To improve nutrient delivery to tissue, To increase oxygenation perfusion This patient was last seen in our office . Pertinent comments regarding their Physical therapy will appear below: Patient was seen for PT for HEP for shoulder ROM and strengthening At this point I will be discontinuing this patient from physical therapy. I would be happy to see this patient again in the future if found appropriate by the physician. Thank you! Bishnu Mejia, PT, Cert MDT, OCS Balance/Gait/Functional tests - Balance/Special Test Scores Quick DASH Score: 47.7261
== END 2021-06-22 19:00 | disposition home or self-care (01) ==
LOC: PT 14:16
PROVIDERS: PCP Family Medicine; Referring Provider Family Medicine; Visit Provider Family Medicine
DX: M25.512 Pain in left shoulder (principal)
CPT/HCPCS: 97110; 97162

== ENCOUNTER → 2022-01-01 | Outpatient (CLI) | payer OTHER, SELFPAY ==
[2022-01-01 10:23] LABS: Anion Gap 3 (5-15); BUN 23 mg/dL (7-18); Chloride 106 mmol/L (98-107); EST Glomerular Filtration Rate 81 mL/min (>60); Est Glom Filt Rate - Afr Amer 98 mL/min (>60); Glucose 125 mg/dL (74-106); Potassium 4.4 mmol/L (3.5-5.1); Sodium Level 138 mmol/L (136-145)
== END | disposition home or self-care (01) ==
LOC: MTLAB 07:02
PROVIDERS: PCP Family Medicine; Referring Provider Family Medicine; Visit Provider Family Medicine
DX: I10 Essential (primary) hypertension (principal)
CPT/HCPCS: 36415; 80048

== ENCOUNTER → 2022-03-20 | Outpatient (CLI) | payer OTHER, SELFPAY ==
--- NOTE | 2022-03-20 07:39 | AAVD_ITS ---
Reason For Study: AAA Aorta Measurements Aorta Doppler Measurements Proximal aorta measures2.34 x 2.34cm. in cross- Peak systolic flow velocities within the proximal sectional axis. aorta measure 105.2 cm/sec. Proximal aorta measures2.34cm. in longitudinal Peak systolic flow velocities within the mid aorta axis. measure 96.4 cm/sec. Mid aorta measures3.65 x 3.76cm. in cross- Peak systolic flow velocities within the distal sectional axis. aorta measure 87.6 cm/sec. Mid aorta measures3.63cm. in longitudinal axis. Distal aorta measures1.86 x 1.84cm. in cross- sectional axis. Distal aorta measures1.74cm. in longitudinal axis. Left Iliac Artery Left iliac artery measures 1.29 x 1.28 cm. in the cross-sectional axis. Left iliac artery measures 1.28 cm. in the longitudinal axis. Peak systolic velocity in the left iliac artery measures 105.2 cm/sec. Right Iliac Artery Right iliac artery measures 1.23 x 1.22 cm. in the cross-sectional axis. Right iliac artery measures 1.25 cm. in the longitudinal axis. Peak systolic velocity in the right iliac artery measures 111.7 cm/sec. Procedure Aorta IVC Iliac vasculature or bypass grafts [id number]. Unable to match measurements from lumbar X-Ray. Exam performed in department. VL/Abd Aortic/IVC Duplex scan Interpretation Summary Aorta patent, 3.76 cm aneurysm present Bilateral iliac arteries patent, normal caliber Ordering Physician: Dejah Cruz Referring Physician: Emile Soto Performed By: Josephine Godoy RVT
== END | disposition home or self-care (01) ==
PROVIDERS: PCP Family Medicine; Visit Provider Physician Assistant
DX: I71.40 Abdominal aortic aneurysm, without rupture, unspecified (principal)
CPT/HCPCS: 93978

== ENCOUNTER → 2022-05-09 | Outpatient (CLI) | payer OTHER, SELFPAY ==
[2022-05-09 10:54] LABS: Anion Gap 5 (5-15); BUN 21 mg/dL (7-18); BUN/Creat Ratio 18.8 RATIO (10-20); Calcium,Total 9.1 mg/dL (8.5-10.1); Chloride 106 mmol/L (98-107); Cholesterol 195 mg/dL (200); Creatinine, Serum 1.12 mg/dL (0.70-1.30); EST Glomerular Filtration Rate 71 mL/min (>60); Est Glom Filt Rate - Afr Amer 86 mL/min (>60); Glucose 126 mg/dL (74-106); High Density Lipoprotein 38 mg/dL; Potassium 4.3 mmol/L (3.5-5.1); Sodium Level 140 mmol/L (136-145); Triglycerides 171 mg/dL; Very Low Density Lipoprotein 34 mg/dL (5-40)
== END | disposition home or self-care (01) ==
PROVIDERS: PCP Family Medicine; Referring Provider Family Medicine; Visit Provider Family Medicine
DX: I10 Essential (primary) hypertension (principal)
CPT/HCPCS: 36415; 80048; 80061

== ENCOUNTER → 2022-07-11 | Outpatient (CLI) | payer OTHER, SELFPAY ==
--- NOTE | 2022-07-11 15:26 | RAD_ITS ---
INDICATION: PAIN EXAMINATION/TECHNIQUE: X-RAY - LEFT XR Shoulder Min 2 Views 5 VIEWS COMPARISON: FINDINGS: SOFT TISSUES: No soft tissue swelling or gas. No radiopaque foreign body. BONES/JOINTS: No acute fracture or subluxation.. Normal alignment. Preservation of the joint space.. No sclerotic or destructive changes observed. RAD/Shoulder min 2 Views IMPRESSION: Negative. Electronically Signed: Jaspreet Muhammad MD at 17:09 EDT ,
--- NOTE | 2022-07-11 15:26 | RAD_ITS ---
INDICATION: PAIN EXAMINATION/TECHNIQUE: X-RAY - RIGHT XR Shoulder Min 2 Views 4 VIEWS COMPARISON: FINDINGS: SOFT TISSUES: No soft tissue swelling or gas. No radiopaque foreign body. BONES/JOINTS: No acute fracture or subluxation.. Normal alignment. Preservation of the joint space.. No sclerotic or destructive changes observed. RAD/Shoulder min 2 Views IMPRESSION: Negative. Electronically Signed: Jaspreet Muhammad MD at 17:10 EDT ,
== END | disposition home or self-care (01) ==
LOC: MTRAD 15:24
PROVIDERS: PCP Family Medicine; Referring Provider Anesthesiology Pain Medicine; Visit Provider Anesthesiology Pain Medicine
DX: M25.511 Pain in right shoulder (principal); M25.512 Pain in left shoulder
CPT/HCPCS: 73030

== ENCOUNTER → 2022-08-29 | Outpatient (CLI) | payer OTHER, SELFPAY ==
[2022-08-29 17:56] LABS: Absolute Lymphocyte Count 1.74 X10^3/uL (0.83-4.51); Absolute Neutrophil Count 2.8 X10^3/uL (2.0-7.7); Basophil# 0.02 X10^3/uL; Basophil% 0.4 % (0-1); Eosinophil# 0.31 X10^3/uL; Eosinophils% 5.9 % (0-5); Hematocrit 42.5 % (40-54); Hemoglobin 14.6 g/dL (13.0-16.5); Lymphocyte # 1.74 X10^3/ul (0.83-4.51); Mean Corp Hgb Conc 34.4 g/dL (32-36); Mean Corpuscular Hgb 31.3 pg (27.0-32.0); Mean Corpuscular Volume 91.2 fL (80-94); Mean Platelet Vol. 11.4 fl (6.2-12.0); Monocyte# 0.42 X10^3/uL; NRBC Flagged by Analyzer 0 % (0-5); Neutrophil # 2.76 X10^3/uL (2.7-7.7); Neutrophil % 52.3 % (47-70); Platelet Count 198 K/mm3 (150-450); RBC Distribution Width CV 12.3 % (11.6-14.6); RBC Distribution Width SD 40.9 fl (35.1-43.9); Red Blood Count 4.66 M/mm3 (4.6-6.2); White Blood Count 5.3 K/mm3 (4.4-11.0)
[2022-08-29 18:26] LABS: ALB/GLOB Ratio 1.1 RATIO (0.9-2.4); AST(SGOT) 18 U/L (15-37); Alanine Aminotransfer ALT/SGPT 28 U/L (16-61); Albumin, Serum 3.6 g/dL (3.2-5.0); Alkaline Phosphatase 36 U/L (45-117); Anion Gap 6 (5-15); BUN 24 mg/dL (7-18); BUN/Creat Ratio 26.1 RATIO (10-20); Calcium,Total 8.7 mg/dL (8.5-10.1); Chloride 109 mmol/L (98-107); Cholesterol 217 mg/dL (200); Creatinine, Serum 0.92 mg/dL (0.70-1.30); EST Glomerular Filtration Rate 89 mL/min (>60); Est Glom Filt Rate - Afr Amer 107 mL/min (>60); Globulin 3.3 g/dL (2.2-4.2); Glucose 137 mg/dL (74-106); High Density Lipoprotein 41 mg/dL; Protein, Total 6.9 g/dL (6.4-8.2); Sodium Level 140 mmol/L (136-145); Thyroid Stim Hormone (TSH) 0.95 uIU/mL (0.358-3.74); Triglycerides 239 mg/dL; Very Low Density Lipoprotein 48 mg/dL (5-40)
[2022-08-29 18:37] LABS: Vitamin B12 372 pg/mL (211-911)
[2022-08-29 18:46] LABS: Hemoglobin A1c 6.1 % (3.8-5.6)
== END | disposition home or self-care (01) ==
LOC: BFHLAB 15:03
PROVIDERS: PCP Family Medicine; Referring Provider Family Medicine; Visit Provider Family Medicine
DX: I10 Essential (primary) hypertension (principal); E78.5 Hyperlipidemia, unspecified; R73.01 Impaired fasting glucose; R53.83 Other fatigue
CPT/HCPCS: 36415; 80053; 80061; 82607; 83036; 84443; 85025

== ENCOUNTER → 2023-01-13 | Outpatient (CLI) | payer OTHER, SELFPAY ==
--- NOTE | 2023-01-13 06:35 | CT_ITS ---
EXAM: CT CHEST, LUNG CANCER SCREENING WITHOUT INTRAVENOUS CONTRAST CLINICAL INDICATION: SCREEN LUNG CANCER TECHNIQUE: Helically acquired images were obtained of the chest without intravenous contrast using low dose (LDCT) lung cancer screening protocol. This CT exam was performed using one or more of the following dose reduction techniques: automated exposure control, adjustment of the mA and/or kV according to patient size, and/or use of iterative reconstruction technique. COMPARISON: Chest radiograph 10/24/2020 FINDINGS: LUNGS AND PLEURAL SPACES: 4 mm calcified granuloma noted within the right lower lobe along the posterior sulcus. Lungs are otherwise clear. No mass. No pleural effusion or thickening. No pneumothorax. HEART: Heart is normal size. Mild to moderate coronary artery calcification. No pericardial effusion. MEDIASTINUM: Normal. Esophagus is unremarkable. No hiatal hernia. No mediastinal or hilar lymphadenopathy. THYROID: Normal. No thyroid nodules or calcification. BONES/JOINTS: No suspicious lytic or blastic abnormality. VASCULATURE: See above. LYMPH NODES: Normal. No enlarged lymph nodes. CT/Low Dose CT Lung Screening IMPRESSION: No evidence of a lung mass. Lung-RADS score: 1 - Negative. Recommend continued annual screening with a low-dose CT (LDCT) in 12 months. Electronically Signed: Lam Castro MD at 9:26 EDT ,
== END | disposition home or self-care (01) ==
LOC: CT 06:30
PROVIDERS: PCP Family Medicine; Referring Provider Family Medicine; Visit Provider Family Medicine
DX: Z12.2 Encounter for screening for malignant neoplasm of respiratory organs (principal); Z72.0 Tobacco use
CPT/HCPCS: 71271

== ENCOUNTER → 2023-05-05 | Outpatient (CLI) | payer OTHER, SELFPAY ==
--- NOTE | 2023-05-05 07:43 | AAVD_ITS ---
Reason For Study: HX AAA Aorta Measurements Aorta Doppler Measurements Proximal aorta measures2.75 x 2.70cm. in cross- Peak systolic flow velocities within the proximal sectional axis. aorta measure 46.1 cm/sec. Proximal aorta measures2.83cm. in longitudinal Peak systolic flow velocities within the mid aorta axis. measure 102.1 cm/sec. Mid aorta measures3.67 x 3.95cm. in cross- Peak systolic flow velocities within the distal sectional axis. aorta measure 71.0 cm/sec. Mid aorta measures3.54cm. in longitudinal axis. Distal aorta measures2.79 x 2.83cm. in cross- sectional axis. Distal aorta measures2.75cm. in longitudinal axis. Left Iliac Artery Left iliac artery measures 1.41 x 1.46 cm. in the cross-sectional axis. Left iliac artery measures 1.47 cm. in the longitudinal axis. Peak systolic velocity in the left iliac artery measures 98.4 cm/sec. Right Iliac Artery Right iliac artery measures 1.25 x 1.29 cm. in the cross-sectional axis. Right iliac artery measures 1.28 cm. in the longitudinal axis. Peak systolic velocity in the right iliac artery measures 78.4 cm/sec. VL/Abd Aortic/IVC Duplex scan Interpretation Summary Aorta patent, 3.95 cm aneurysm present Right iliac artery patent with ectasia to 1.47 cm Left iliac artery patent with ectasia to 1.29 cm Ordering Physician: Dejah Lopes Referring Physician: Macho Calderon Performed By: Sudheer Morales, RVT
== END | disposition home or self-care (01) ==
LOC: CVS 07:38
PROVIDERS: PCP Family Medicine; Referring Provider Physician Assistant; Visit Provider Physician Assistant
DX: I71.40 Abdominal aortic aneurysm, without rupture, unspecified (principal)
CPT/HCPCS: 93978

== ENCOUNTER → 2023-07-25 | Outpatient (CLI) | payer OTHER, SELFPAY ==
[2023-07-25 17:40] LABS: Absolute Lymphocyte Count 2.15 X10^3/uL (0.83-4.51); Absolute Neutrophil Count 1.9 X10^3/uL (2.0-7.7); Basophil# 0.04 X10^3/uL; Basophil% 0.8 % (0-1); Eosinophil# 0.27 X10^3/uL; Eosinophils% 5.7 % (0-5); Hematocrit 40.4 % (40-54); Hemoglobin 14.3 g/dL (13.0-16.5); Lymphocyte # 2.15 X10^3/ul (0.83-4.51); Lymphocyte % 45.6 % (19-41); Mean Corp Hgb Conc 35.4 g/dL (32-36); Mean Corpuscular Hgb 31.8 pg (27.0-32.0); Mean Corpuscular Volume 89.8 fL (80-94); Mean Platelet Vol. 11.7 fl (6.2-12.0); Monocyte# 0.38 X10^3/uL; Monocyte% 8.1 % (0-10); NRBC Flagged by Analyzer 0 % (0-5); Neutrophil # 1.85 X10^3/uL (2.7-7.7); Neutrophil % 39.4 % (47-70); Platelet Count 226 K/mm3 (150-450); RBC Distribution Width CV 12.1 % (11.6-14.6); RBC Distribution Width SD 39.5 fl (35.1-43.9); White Blood Count 4.7 K/mm3 (4.4-11.0)
[2023-07-25 18:03] LABS: ALB/GLOB Ratio 1.1 RATIO (0.9-2.4); AST(SGOT) 27 U/L (15-37); Alanine Aminotransfer ALT/SGPT 36 U/L (16-61); Albumin, Serum 3.6 g/dL (3.2-5.0); Alkaline Phosphatase 32 U/L (45-117); Anion Gap 6 (5-15); BUN 24 mg/dL (7-18); BUN/Creat Ratio 20.5 RATIO (10-20); Calcium,Total 8.6 mg/dL (8.5-10.1); Chloride 108 mmol/L (98-107); Cholesterol 181 mg/dL (200); Creatinine, Serum 1.17 mg/dL (0.70-1.30); EST Glomerular Filtration Rate 67 mL/min (>60); Est Glom Filt Rate - Afr Amer 81 mL/min (>60); Globulin 3.2 g/dL (2.2-4.2); Glucose 154 mg/dL (74-106); High Density Lipoprotein 27 mg/dL; PSA,Total - Annual Screen 0.61 ng/mL (0.00-4.00); Potassium 4.2 mmol/L (3.5-5.1); Protein, Total 6.8 g/dL (6.4-8.2); Sodium Level 139 mmol/L (136-145); Triglycerides 536 mg/dL
[2023-07-25 18:30] LABS: Hemoglobin A1c 6.1 % (3.8-5.6)
== END | disposition home or self-care (01) ==
LOC: BFHLAB 15:06
PROVIDERS: PCP Family Medicine; Referring Provider Family Medicine; Visit Provider Family Medicine
DX: I25.10 Atherosclerotic heart disease of native coronary artery without angina pectoris (principal); I10 Essential (primary) hypertension; E78.5 Hyperlipidemia, unspecified; R73.01 Impaired fasting glucose; Z12.5 Encounter for screening for malignant neoplasm of prostate
CPT/HCPCS: 36415; 80053; 80061; 83036; 84153; 85025; G0103

== ENCOUNTER → 2023-11-12 | Outpatient (CLI) | payer OTHER, SELFPAY ==
[2023-11-12 13:05] LABS: CRP < 2.90 mg/L (0.0-3.0)
== END | disposition home or self-care (01) ==
LOC: BFHLAB 08:34
PROVIDERS: PCP Family Medicine; Referring Provider Family Medicine; Visit Provider Family Medicine
DX: R53.83 Other fatigue (principal); R61 Generalized hyperhidrosis
CPT/HCPCS: 36415; 84403; 84443; 86140

== ENCOUNTER → 2024-05-06 | Outpatient (CLI) | payer OTHER, SELFPAY ==
--- NOTE | 2024-05-06 08:40 | AAVD_ITS ---
Reason For Study Reason For Study: HX AAA Aorta Measurements Aorta Doppler Measurements Proximal aorta measures2.39x2.51cm. in cross-sectional axis.Peak systolic flow velocities within the proximal aorta Proximal aorta measures2.48cm. in longitudinal axis. measure 86.8 cm/sec. Mid aorta measures3.48x3.81cm. in cross-sectional axis. Peak systolic flow velocities within the mid aorta measure Mid aorta measures3.74cm. in longitudinal axis. 95.9 cm/sec. Distal aorta measures2.08x2.02cm. in cross-sectional axis. Peak systolic flow velocities within the distal aorta Distal aorta measures2.06cm. in longitudinal axis. measure 74.1 cm/sec. Left Iliac Artery Left iliac artery measures 1.17 cm. in the longitudinal axis. Left iliac artery measures 1.29x1.31 cm. in the cross- sectional axis. Peak systolic velocity in the left iliac artery measures 94.2 cm/sec. Right Iliac Artery Right iliac artery measures 1.19 cm. in the longitudinal axis. Right iliac artery measures 1.01x1.33 cm. in the cross- sectional axis. Peak systolic velocity in the right iliac artery measures 120.5 cm/sec. Procedure Aorta IVC Iliac vasculature or bypass grafts [id number]. Exam performed in department. VL/Abd Aortic/IVC Duplex scan Interpretation Summary Aorta patent, 3.81 cm aneurysm present. Right iliac artery patent, ectasia to 1.33 cm Left iliac artery patent, ectasia to 1.31 cm Ordering Physician: Dejah Lopes Referring Physician: Macho Calderon Performed By: Josephine Godoy RVT and Student
== END | disposition home or self-care (01) ==
PROVIDERS: PCP Family Medicine; Referring Provider Physician Assistant; Visit Provider Physician Assistant
DX: I71.40 Abdominal aortic aneurysm, without rupture, unspecified (principal); I77.9 Disorder of arteries and arterioles, unspecified
CPT/HCPCS: 93978

== ENCOUNTER → 2024-08-23 | Outpatient (CLI) | payer OTHER, SELFPAY ==
--- NOTE | 2024-08-23 14:28 | RAD_ITS ---
PROCEDURE: CHEST PA AND LATERAL 08/23/2024 REASON FOR EXAM: RULE OUT PNEUMONIA TECHNIQUE: Frontal and lateral views of the chest. COMPARISON: None FINDINGS: No focal consolidations. No pleural effusion or pneumothorax. Cardiac silhouette is within normal limits. No acute fractures. RAD/Chest PA and Lateral IMPRESSION: No focal consolidations. Reading Location: [id number]
== END | disposition home or self-care (01) ==
LOC: MTRAD 14:27
PROVIDERS: PCP Family Medicine; Referring Provider Nurse Practitioner Family; Visit Provider Nurse Practitioner Family
DX: R05.9 Cough, unspecified (principal)
CPT/HCPCS: 71046